=== PATIENT | female | born 1985 | race Caucasian/White ===

== ENCOUNTER → 2025-04-03 11:48 | Outpatient (CLI) | payer OTHER, SELFPAY ==
[2025-04-03 13:06] LABS: Natera Collection Specimen Collected
[2025-04-03 13:08] LABS: Add Manual Diff / Slide Review NO; Hematocrit 37.0 % (36-46); Hemoglobin 12.4 g/dL (12.0-16.0); Lymphocytes Absolute Auto 2000 /uL (1100-4500); Mean Corpuscular HGB Conc 33.4 % (30-36); Mean Corpuscular Hemoglobin 29.9 PG (26-34); Mean Corpuscular Volume 89.5 fL (80-100); Platelet Count 313 X10^3/uL (150-400)
[2025-04-03 13:27] LABS: HEMOLYSIS < 15 (0-50); Iron 100 ug/dL (37-170)
[2025-04-03 13:31] LABS: Alanine Aminotransferase 12 IU/L (<35); Albumin 4.1 g/dL (3.5-5.0); Albumin Globulin Ratio 1.4 (1.0-2.8); Alkaline Phosphatase 59 U/L (38-126); Blood Urea Nitrogen 10 mg/dL (7-17); Calcium 9.4 mg/dL (8.4-10.2); Carbon Dioxide 23 mmol/L (22-32); Chloride 103 mmol/L (98-107); Estimated Glomerular Filt Rate > 60 mL/min (>60); Globulin 2.9 g/dL (1.7-4.1); Glucose 72 mg/dL (70-99); HEMOLYSIS < 15 (0-50); Potassium 4.1 mmol/L (3.4-5.1); Sodium 135 mmol/L (137-145); Total Protein 7.0 g/dL (6.3-8.2)
[2025-04-03 13:38] LABS: Percent Iron Saturation 28 % (15-50); Total Iron Binding Capacity 355 ug/dL (265-497); Transferrin 309 mg/dL (206-381)
[2025-04-03 16:22] LABS: Hepatitis B Surface Antigen NEGATIVE s/c (NEGATIVE)
[2025-04-03 16:39] LABS: HIV 1 & 2 Ab/Ag 4th Gen Combo NEGATIVE (NEGATIVE); Hep C Virus Ab w/Reflex Quant NEGATIVE s/c (NEGATIVE)
[2025-04-05 21:08] LABS: Gest Age on Col Date 15.9 weeks (.); OSBR Risk 1IN 10000 (.)
[2025-04-07 08:26] LABS: PDF SEE SCANNED REPORTS
== END ==
PROVIDERS: Family Provider Registered Nurse Women's Health Care, Ambulatory; PCP Nurse Practitioner Family; Referring Provider Obstetrics & Gynecology; Visit Provider Obstetrics & Gynecology
DX: O09.892 Supervision of other high risk pregnancies, second trimester (principal); Z98.84 Bariatric surgery status; Z3A.15 15 weeks gestation of pregnancy
CPT/HCPCS: 36415; 80053; 80055; 82105; 83540; 83550; 86787; 86803; 86850; 86900; 86901; 87086; 87389

== ENCOUNTER → 2025-05-12 13:38 | Outpatient (CLI) | payer OTHER, SELFPAY ==
--- NOTE | 2025-05-12 13:40 | DI.US.S_ITS ---
PROCEDURE: US OB >= 14 WEEKS FETUS INDICATIONS: 20 week anatomy OUTSIDE/PRIOR DATING DATA: Last menstrual period (LMP): 12/13/2024 LMP-based estimated date of delivery (DOUGLAS): 09/19/2025 Calculations below are based on the clinical DOUGLAS of 09/19/2025. TECHNIQUE: Real-time scanning was performed of the fetus, with image documentation and biometric measurements. Endovaginal scanning: Not performed COMPARISON: None. FINDINGS: General: A single living intrauterine gestation is present. Presentation: Transverse Placenta: Placental position is anterior, without previa. Amniotic fluid index: 19.3 cm, normal range is 5-24 cm. Single deepest vertical pocket is 5.5 cm. heart rate: 147 beats per minute. Maternal cervical canal: 4.9 cm long. Normal lower limit is 2.5 cm. biometrics: Biparietal diameter: 5.4 cm, 22 weeks 2 days Head circumference: 19.2 cm, 21 weeks 3 days Abdominal circumference: 18.1 cm, 23 weeks 0 days Femur length: 3.6 cm, 21 weeks 3 days Clinically estimated gestational age: 21 weeks 3 days Composite gestational age from present scan: 22 weeks 0 days Estimated weight and percentile: 485 g, 84th percentile Anatomic survey: Neuro: Ventricles are non-dilated at less than 10 mm. Cisterna magna is normal at 3-11 mm. Cerebellum is normal in size and morphology. Nuchal skin fold: Normal at less than 6 mm between 14-21 weeks gestational age. Face: Nose and lips, facial profile are normal. Spine: No evidence for spina bifida. Heart: 4-chambered heart is present. Ventricular outflow tracts are not well visualized due to positioning. Diaphragm: Diaphragm is intact. Stomach: Left-sided stomach is present. Kidneys: No hydronephrosis. Normal is less than 5 mm in 2nd trimester, less than 7 mm in 3rd trimester. Cord: 3-vessel cord has orthotopic insertion. Bladder: Normal in size. Extremities: All 4 extremities identified. IMPRESSION: 1. Single live intrauterine . 2. Estimated weight is at the 84th percentile based on clinical gestational age. 3. Right and left ventricular outflow tracts are not well visualized due to positioning and motion. Recommend follow-up. 4. anatomic survey is otherwise within normal limits. Approved by: Eulalio Crawford M.D. on 05/12/2025 at 16:22
== END ==
LOC: US 13:39
PROVIDERS: PCP Nurse Practitioner Family; Referring Provider Obstetrics & Gynecology; Visit Provider Obstetrics & Gynecology
DX: Z34.82 Encounter for supervision of other normal pregnancy, second trimester (principal); Z3A.21 21 weeks gestation of pregnancy
CPT/HCPCS: 76811

== ENCOUNTER → 2025-06-11 06:46 | Outpatient (CLI) | payer OTHER, SELFPAY ==
--- NOTE | 2025-06-11 06:47 | DI.US.S_ITS ---
PROCEDURE: US OB FOLLOW UP INDICATIONS: RE-EVAL OUTFLOW TRACTS OUTSIDE/PRIOR DATING DATA: The calculations are made using the working DOUGLAS of 09/19/25. TECHNIQUE: Real-time scanning was performed of the fetus, with image documentation. Endovaginal scanning: No COMPARISON: [facility], , OB FOLLOW UP, 05/20/2025, 10:41. FINDINGS: A single living intrauterine gestation is present. Presentation: Vertex. Placenta: Placental position is fundal, without previa. Amniotic fluid index: 24.2 cm, normal range is 5-24 cm. Single deepest vertical pocket is 6.3 cm. heart rate: 140 beats per minute. Maternal cervical canal: Closed and 3.9 cm long. Normal lower limit is 2.5 cm. Clinically estimated gestational age: 25 weeks five days Four chambered heart and normal cardiac outflow tracts are seen. IMPRESSION: Completion of the anatomic survey with visualization of normal cardiac structures including outflow tracts. Incidental note of upper normal amniotic fluid volume. Clinical follow-up suggested. Dictated by: Lauren Damian M.D. on 06/11/2025 at 12:53 Approved by: Lauren Damian M.D. on 06/11/2025 at 12:58
== END ==
LOC: US 06:46
PROVIDERS: PCP Nurse Practitioner Family; Referring Provider Obstetrics & Gynecology; Visit Provider Obstetrics & Gynecology
DX: Z36.2 Encounter for other antenatal screening follow-up (principal); Z3A.25 25 weeks gestation of pregnancy
CPT/HCPCS: 76816

== ENCOUNTER → 2025-07-16 09:17 | Outpatient (CLI) | payer OTHER, SELFPAY ==
--- NOTE | 2025-07-16 09:18 | DI.US.S_ITS ---
PROCEDURE: US OB FOLLOW UP INDICATIONS: EFW; KYA OUTSIDE/PRIOR DATING DATA: Working DOUGLAS is 09/19/2025 TECHNIQUE: Real-time scanning was performed of the fetus, with image documentation and biometric measurements. COMPARISON: [facility], OB FOLLOW UP, 06/11/2025, 6:57. FINDINGS: General: A single living intrauterine gestation is present. Presentation: Vertex. Placenta: Placental position is anterior , without previa. Amniotic fluid index: 20.2 cm, normal range is 5-24 cm. Single deepest vertical pocket is 5.8 cm. heart rate: 141 beats per minute. Maternal cervical canal: 4.7 cm long. Normal lower limit is 2.5 cm. biometrics: Biparietal diameter: 7.9 cm, 31 weeks and 4 days Head circumference: 29.2 cm, 32 weeks and 1 day Abdominal circumference: 27.5 cm, 31 weeks and 4 days Femur length: 6.1 cm, 31 weeks and 4 days Clinically estimated gestational age: 30 weeks and 5 days Composite gestational age from present scan: 31 weeks and 5 days Estimated weight and percentile: 1813 g, 71% Other: Not applicable. IMPRESSION: Intrauterine gestation in vertex presentation. Cardiac motion is seen. Normal KYA. EFW within normal limits, 71 percentile Dictated by: Santi Mirza M.D. on 07/16/2025 at 16:29 Approved by: Santi Mirza M.D. on 07/16/2025 at 16:30
== END ==
LOC: US 09:18
PROVIDERS: PCP Nurse Practitioner Family; Referring Provider Nurse Practitioner Family; Visit Provider Obstetrics & Gynecology
DX: O09.899 Supervision of other high risk pregnancies, unspecified trimester (principal); O36.62X0 Maternal care for excessive fetal growth, second trimester, not applicable or unspecified
CPT/HCPCS: 76816

== ENCOUNTER → 2025-09-02 08:17 | Outpatient (CLI) | payer OTHER, SELFPAY ==
[2025-09-03 10:54] LABS: Strep Grp B PCR NEG for Grp B Strep
== END ==
PROVIDERS: PCP Nurse Practitioner Family; Visit Provider Obstetrics & Gynecology
DX: Z36.85 Encounter for antenatal screening for Streptococcus B (principal)
CPT/HCPCS: 87653

== ENCOUNTER 2025-09-08 07:20 | Outpatient (CLI) | payer OTHER, SELFPAY | END 2025-09-08 08:00 | disposition home or self-care (01) | LOC: LABOR 07:24 → OB 14:20 | PROVIDERS: PCP Nurse Practitioner Family; Referring Provider Obstetrics & Gynecology; Visit Provider Obstetrics & Gynecology | DX: O32.1XX0 Maternal care for breech presentation, not applicable or unspecified (principal); Z3A.38 38 weeks gestation of pregnancy | CPT/HCPCS: 59025; 76815; G0378; G0379 ==

== ENCOUNTER 2025-09-14 04:25 | Inpatient (IN) | payer OTHER, SELFPAY ==
--- NOTE | 2025-09-14 05:28 | PM.OBHP.IH.1 ---
OB HPI Date/Time Date of admission: 09/14/25 Date Patient Seen: 09/14/25 Time Patient Seen: 04:30 History of Present Condition Chief complaint: Labor DOUGLAS Calculator Estimated Delivery Date Method Current WG Current Estimate 09/19/25 LMP (Uncertain) 39w 2d Other Estimates 09/17/25 Ultrasound #1 39w 4d Narrative: Patient presents to labor and delivery following precipitous delivery of live male infant in her vehicle on the way to the hospital. She reports contractions were throughout the day yesterday, and she had a lot of bloody show. Her water broke just prior to leaving for the hospital, and she delivered within 10 minutes of arrival at the emergency room doors. She presents through the emergency room entrance with the baby on her chest. care: good care Dating criteria OB: LMP confirmed by 2nd trimester US Ultrasounds: normal mid trimester US Obstetrical complications: none Medical complications OB: none External History : 5 Para: 4 Estimated Date of Delivery: 09/19/25 Preadmission Labs Last OB Lab Results: Blood Type O Negative 04/03/25, 12:06 Antibody Screen Negative 05/28/25, 09:45 Hct, (36-46) 32.3 % L 05/28/25, 09:45 Hgb, (12.0-16.0) 10.7 g/dL L 05/28/25, 09:45 Hep Bs Antigen, (NEGATIVE) Negative s/c 04/03/25, 12:06 Hepatitis C Antibody, (NEGATIVE) Negative s/c 04/03/25, 12:06 Rubella Antibody, (>15) 31.8 IU/mL 04/03/25, 12:06 VZV IgG Antibody, (Non Reactive) Reactive 04/03/25, 12:06 Glucose 1 Hr 50 gm, (76-139) 115 mg/dL 05/28/25, 09:45 Group B Strep (PCR) Neg for grp b strep 09/02/25, 08:17 Prior (ies) Past Pregnancies Del. Date GA/Weeks Labor Lgth Wt Sex Route Outcome Anesthesia Place Delv Breastfeed Preg Comp Name 12/22/14 41 10 7 lb Female vaginal live - full term epidural [facility] ~3 months [place] 07/06/17 42 9 lb Female vaginal live - full term epidural [facility] ~10 months Adrielle 05/03/22 40+ 1 8 lb Male vaginal live - full term none [facility] 18-24 months 08/06/24 20.2 11 oz vaginal spontaneous [facility] Delivery Date: 12/22/14 Last Updated by: Mitzi Christie RN anemia Delivery Date: 05/03/22 Last Updated by: Mitzi Christie RN precip delivery, +chlamydia (treated) Delivery Date: 08/06/24 Last Updated by: Mitzi Christie RN Sudden onset PTL, baby during labor, +blood cultures for Peptoniphilus asaccharolyticus [facility] Medical History Chlamydia infection complicating Tooth decay Closed fracture of coccyx Elbow fracture (~2016) Miscarriage at 8 to 28 weeks gestation (~08/06/24) Surgical History H/O gastric sleeve (~08/2023) Family History Father Family estrangement Mother Diabetes mellitus Grandmother Arthritis Dementia H/O gastric bypass Aunt Lymphedema Social History marital status: unmarried,living together number of children: 3 household members: significant other and children lives independently: Yes caregiver/support person: Yes housing: house pets and animals: Yes (fish, lizard) education level: college (Associate's degree) occupational status: employed (para-educator) current occupational exposures/hazards: No special tj needs: No travel history: over 6 months ago other: would refuse vaccines and blood transfusions, but not for muslim reasons seatbelt use: always water heater temp set < 120 deg: Yes working smoke detector in home: Yes fire extinguisher in home: Yes carbon monox detector in home: Yes firearms in home: No do you feel safe at home: Yes second hand exposure: No alcohol intake: former (rarely when not ) substance use type: does not use during the past year weight has: decreased > 10 lbs (significant loss since gastric sleeve in August 2023) well-balanced diet: about half the time daily servings fruits/ve-4 caffeine: Yes (single cup coffee since realizing she was again) Type(s) of exercise: walking and resistance training additional social history: Discussed at length the risk to of several communicable diseases including COVID, flu, RSV, CMV; instructed pt that if she plans to refuse vaccines she should do her best to protect herself in other ways including wearing a mask in public, frequent hand hygiene, etc. 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 She also states that she would refuse blood transfusions, although not for muslim reasons; we also discussed that because of this there will be limited tolerance for anemia in and it would be aggressively managed with supplements and even iron transfusions. Meds Home Medications and Allergies Home Medications ?Medication ?Instructions ?Recorded ?Confirmed ?Type [id number] 400 mcg-om3 35 mg-dha 25 tab PO 04/02/25 09/09/25 History mg-epa 5 mg-fish oil chewable tablet biotin 10,000 mcg capsule mcg PO 04/02/25 09/09/25 History calcium citrate 600 mg PO DAILY 04/02/25 09/09/25 History cholecalciferol (vitamin D3) 125 125 mcg PO DAILY 04/02/25 09/09/25 History mcg (5,000 unit) capsule magnesium glycinate 240 mg PO DAILY 04/02/25 09/09/25 History omega 1-fud-fya-fish oil 300 1 cap PO DAILY 04/02/25 09/09/25 History mg-1,000 mg capsule (Fish Oil) vitamin B complex 1 cap PO DAILY 04/02/25 09/09/25 History hydrocortisone 2.5 % topical cream 1 applic IA QD-BID PRN hemorrhoids 08/13/25 09/09/25 Rx with perineal applicator #30 grams (Anusol-HC) Allergies Allergy/AdvReac Type Severity Reaction Status Date / Time No Known Drug Allergies Allergy Verified 09/09/25 12:12 OB Exam Vital signs Blood Pressure: 115/71 Pulse Rate: 75 Respiratory Rate: 16 Temperature: 36.8 F Narrative Exam Narrative: Assess patient on arrival, sitting in wheelchair with baby on abdomen, attached umbilical cord with placenta in-situ. No significant bleeding at this time. HENMT Head: normocephalic and atraumatic Resp Effort & Inspection: normal respiratory effort and no respiratory distress Cardio Rate: regular rate Rhythm: regular rhythm Extremities Lower extremity: Yes normal to inspection External Female Exam: Yes normal external appearance and No laceration Assessment and Plan Assessment and Plan Assessment and Plan narrative: # S/p precipitous vaginal delivery en route to hospital - See delivery note for placental delivery - No lacerations - Routine care # Rh negative status - Rhogam ordered depending on baby's status #Grandmultiparity - PP pitocin recommended # AMA Time-Based Coding :: [TOTAL MINUTES] spent with patient and on the chart (including review of chart, obtaining history, exam, reviewing outside data, placing orders, documenting exam and treatment plan, and counseling patient) on [DATE].
[2025-09-14 05:38] VITALS: BP 115/71; PULSE 75; RESP 16; TEMP 2.7; TEMP 36.8
[2025-09-14 05:39] LABS: Add Manual Diff / Slide Review NO; Hematocrit 40.1 % (36-46); Hemoglobin 13.2 g/dL (12.0-16.0); Lymphocytes Absolute Auto 1600 /uL (1100-4500); Mean Corpuscular HGB Conc 32.9 % (30-36); Mean Corpuscular Hemoglobin 29.0 PG (26-34); Mean Corpuscular Volume 88.1 fL (80-100); Platelet Count 303 X10^3/uL (150-400)
--- NOTE | 2025-09-14 05:39 | P.PCNOB_ITS ---
Labor & Delivery Delivery date: 09/14/25 Delivery Time: 04:15 Intrapartal Events: Precipitous Labor < 3 hours (Out of hospital - delivered in car on the way to the hospital) Cervical ripening method: none Induction method: none Delivery monitor: none Route of delivery: L&D Laceration Description: None Estimated blood loss (mL): 100 Anesthesia Type: None Complications: Out of hospital Narrative: The patient presented to the ER entrance having just given to her son in the car on the way to the hospital. Baby was on maternal abdomen and was well- appearing. The patient was transferred to a labor and delivery room. The um bilical cord was clamped and then cut. Cord blood was obtained. An IV was placed and Pitocin was bolused in. The placenta delivered shortly after. The fundus was firm and there was no significant bleeding. There were no lacerations identified. The mom and baby are stable and recovering appropriately. [place] Baby 1: gender: Male Placenta delivery description: Spontaneous Cord Vessel Description: 3 Vessels Plan for aftercare: Routine care
[2025-09-14] MEDS: DOCUSATE 100 MG CAPSULE PO (17:02)
--- NOTE | 2025-09-14 20:15 | PM.OBDS.1 ---
Discharge Providers Provider Date of admission: 09/14/25 04:25 Discharge Date: 09/14/25 Primary care physician: LUIS Rivera Consults: 09/14/25 05:25 Consult to Small Kick Press Operator Routine Comment: Discharge provider: Sadaf Rollins DO Summary Hospital Course Date Patient Seen: 09/14/25 Time Patient Seen: 20:16 Diagnoses: S/p precipitous out of hospital Hospital Course: Patient presented shortly after precipitous vaginal delivery of her son in the car en-route to the hospital. She had no lacerations. On arrival, the cord was clamped and cut, and the placenta was delivered. Bleeding was minimal. , she recovered quickly. She had return of normal bowel and bladder function. Bleeding remained scant and fundus remained firm. Her vital signs were stable. She was well-appearing. She desired discharge from the hospital on day 0. Peripartum Data Infant Delivery Method: Natural Vaginal Laceration Description: None complications: none [place] 1: Gender: Male Discharge Diagnosis (1) Precipitous delivery: Status: Acute Problem Details: Routine care. Status at Discharge Cognitive/behavioral status at discharge: oriented Functional status at discharge: independent ambulation Time Spent with Patient Time attestation: Total time spent providing and/or coordinating discharge services: Time spent: Less than 30 minutes Objective Labs 09/14/25 04:45 Labs: Laboratory Results - last 24 hr 09/14/25 04:45 WBC 18.3 H RBC 4.56 Hgb 13.2 Hct 40.1 MCV 88.1 MCH 29.0 MCHC 32.9 RDW 13.8 Plt Count 303 Neut % (Auto) 87.2 H Lymph % (Auto) 8.7 L [place] % (Auto) 3.4 Eos % (Auto) 0.5 L Baso % (Auto) 0.2 Neut # (Auto) 09653 H Lymph # (Auto) 1600 [place] # (Auto) 600 Eos # (Auto) 100 Baso # (Auto) 0 Blood Type O Negative Antibody Screen Negative Maternal Bleed Negative Exam Vital Signs (past 8 hours): Blood pressure 110/68, pulse 74, respiratory rate 18, temperature 98.2?, O2 sat 99% on room air. Const General: healthy appearing and comfortable Resp Effort & Inspection: normal respiratory effort and no respiratory distress Cardio Rate: regular rate Rhythm: regular rhythm GI Inspection: normal to inspection and non-distended Other: Fundus firm below umbilicus Skin General: no rashes or lesions noted Neuro General: patient alert, patient awake and patient oriented x3 Psych Appearance: grossly normal Mental Status: mental status grossly normal Speech and Movement: speech and movement normal Mood: congruent mood Affect: normal affect Discharge Plan Discharge Plan Patient Disposition: Home Discharge orders & Medications Prescriptions: New docusate sodium 100 mg capsule 100 mg PO BID Qty: 60 0RF Continued cholecalciferol (vitamin D3) 125 mcg (5,000 unit) capsule 125 mcg PO DAILY vitamin B complex Capsule 1 cap PO DAILY omega 0-awe-btl-fish oil [Fish Oil] 300-1,000 mg capsule 1 cap PO DAILY [id number] oil 400 mcg-35 mg -25 mg-5 mg tablet,chewable PO magnesium glycinate 118 mg magnesium capsule 240 mg PO DAILY biotin 10,000 mcg capsule PO calcium citrate 200 mg (950 mg) tablet 600 mg PO DAILY hydrocortisone [Anusol-HC] 2.5 % cream with perineal applicator 1 applic OK QD-BID PRN (Reason: hemorrhoids) Qty: 30 2RF Follow up/Referrals: Jaye Boswell ARNP [Primary Care Provider, Family Practice] Diet/Activity/Treatments Diet comment: As tolerated Activity: Pelvic rest for 6 weeks: Nothing in the vagina. Cold/Heat Therapy: OK to use hot and cold packs as needed Skin/Wound/Dressing Care Skin care: Witch artemio pads, dermoplast spray OK to use on perineum Visit Report/Discharge Packet Stand Alone Forms: Patient Portal/API, Stroke Signs & Symptoms Discharge Data Primary Care Provider: Jaye Boswell Attending Provider: Sadaf Rollins Admit Date/Time: 09/14/25 04:25
[2025-09-14 23:25] VITALS: BP 115/71; PULSE 75; RESP 16; TEMP 2.7; TEMP 36.8
[2025-09-15] MEDS: RHO(D) IMMUNE GLOBULIN 1,500 UNIT SYRINGE 1500 UNIT IM (00:54)
== END 2025-09-15 01:20 | disposition home or self-care (01) | DRG 807 ==
PROVIDERS: Admitting Provider Student in an Organized Health Care Education/Training Program; PCP Nurse Practitioner Family; Referring Provider Student in an Organized Health Care Education/Training Program; Visit Provider Student in an Organized Health Care Education/Training Program
DX: O62.3 Precipitate labor (principal); Z37.0 Single live birth; Z3A.39 39 weeks gestation of pregnancy
CPT/HCPCS: 85025; 85461; 86850; 86900; 86901; G0378; G0379; J2790